=== PATIENT | female | born 1995 | race Two or more races ===

== ENCOUNTER 2020-10-27 23:47 | Emergency (ER) | payer BC ==
[~2020-10-27] VITALS: Ht 154.9 cm; Wt 54.5 kg
--- NOTE | 2020-10-28 00:08 | PHYS DOC ---
Past History Past Medical History: No Pertinent History Past Surgical History: No Surgical History Adult General Chief Complaint Chief Complaint: ABDOMINAL PAIN HPI HPI Patient is a 25-year-old female presenting for abdominal pain. Reports onset w as 8 PM yesterday evening without any known inciting event or ingestion. States she has been fairly nauseous throughout the day and had a glass of orange juice and a muffin for dinner. Reports that nausea worsened throughout the evening prompting her to have several episodes of nonbloody nonbilious emesis. She then began to experience epigastric burning with mild radiation to pe riumbilical/right flank areas. Leaning forward alleviates the pain, p.o. intake exacerbates nausea and subsequent pain. Timing of symptoms has been constant and worsening since onset. She has not taken anything for the pain. Denies any prior abdominal surgeries, denies any medical issues, takes no medications on a daily basis. Review of Systems Review of Systems Fourteen body systems of review of systems have been reviewed. See HPI for pertinent positives and negative responses, other bay all other systems are negative, non-pertinent or non-contributory Allergies Allergies Allergies Coded Allergies Type Severity Reaction Last Updated Verified No Known Drug Allergies 10/28/20 No Physical Exam Physical Exam Constitutional: Well developed, well nourished, no acute distress, non-toxic appearance. HENT: Normocephalic, atraumatic, bilateral external ears normal, oropharynx moist, no oral exudates, nose normal. Eyes: PERRLA, EOMI, conjunctiva normal, no discharge. Neck: Normal range of motion, no tenderness, supple, no stridor. Cardiovascular: Heart rate regular, sinus rhythm, no murmurs rubs or gallops Lungs & Thorax: Bilateral breath sounds clear to auscultation Abdomen: Bowel sounds normal, soft, periumbilical and epigastric tenderness with guarding present, no rebound, negative Christian and Rovsing signs, negative heel strike, no masses, no pulsatile masses. Nonsurgical abdomen, no peritoneal signs Skin: Warm, dry, no erythema, no rash. Back: No tenderness, no CVA tenderness. Extremities: No tenderness, no cyanosis, no clubbing, ROM intact, no edema. Neurologic: Alert and oriented X 3, grossly normal motor & sensory function, no focal deficits noted. Psychologic: Affect normal, judgement normal, mood normal. Current Patient Data Vital Signs Vital Signs Date Time Temp Pulse Resp B/P (MAP) Pulse Ox O2 Delivery O2 Flow Rate FiO2 10/27/20 23:58 98.7 93 16 111/65 (80) 99 Room Air Lab Results Laboratory Tests Test 10/27/20 23:59 10/28/20 00:00 10/28/20 00:27 Urine Collection Type Unknown Urine Color Yellow Urine Clarity Clear Urine pH 5.0 Urine Specific [place]ward[place] 1.025 Urine Protein Neg Urine Glucose (UA) Neg mg/dL Urine Ketones (Stick) Neg mg/dL Urine Blood Neg Urine Nitrite Neg Urine Bilirubin Neg Urine Urobilinogen Dipstick 0.2 mg/dL Urine Leukocyte Esterase Neg Urine RBC 0 /HPF Urine WBC Occ /HPF Urine Squamous Epithelial Cells Mod /LPF Urine Bacteria Few /HPF Bedside Urine HCG, Qualitative hcg negative White Blood Count 10.4 x10^3/uL Red Blood Count 4.85 x10^6/uL Hemoglobin 13.4 g/dL Hematocrit 39.4 % Mean Corpuscular Volume 81 fL Mean Corpuscular Hemoglobin 28 pg Mean Corpuscular Hemoglobin Concent 34 g/dL Red Cell Distribution Width 13.9 % Platelet Count 212 x10^3/uL Neutrophils (%) (Auto) 81 % Lymphocytes (%) (Auto) 14 % Monocytes (%) (Auto) 5 % Eosinophils (%) (Auto) 1 % Basophils (%) (Auto) 0 % Neutrophils # (Auto) 8.4 x10^3uL Lymphocytes # (Auto) 1.4 x10^3/uL Monocytes # (Auto) 0.5 x10^3/uL Eosinophils # (Auto) 0.1 x10^3/uL Basophils # (Auto) 0.0 x10^3/uL Sodium Level 142 mmol/L Potassium Level 3.4 mmol/L Chloride Level 106 mmol/L Carbon Dioxide Level 28 mmol/L Anion Gap 8 Blood Urea Nitrogen 13 mg/dL Creatinine 0.7 mg/dL Estimated GFR (Cockcroft-Gault) 103.7 BUN/Creatinine Ratio 19 Glucose Level 104 mg/dL Calcium Level 8.7 mg/dL Total Bilirubin 0.8 mg/dL Aspartate Amino Transf (AST/SGOT) 26 U/L Alanine Aminotransferase (ALT/SGPT) 59 U/L Alkaline Phosphatase 76 U/L Total Protein 7.8 g/dL Albumin 3.7 g/dL Albumin/Globulin Ratio 0.9 Lipase 98 U/L Current Medications Medications (Trade) Dose Ordered Sig/Jodie Route PRN Reason Start Time Stop Time Status Last Admin Dose Admin Multi-Ingredient Mouthwash/Gargle (Gi Cocktail) 20 ml STK-MED ONCE .ROUTE 10/28/20 00:19 10/28/20 00:19 DC Sodium Chloride 1,000 ml @ 1,000 mls/hr 1X ONCE IV 10/28/20 00:30 10/28/20 01:29 DC 10/28/20 00:36 Ondansetron HCl (Zofran) 4 mg 1X ONCE IVP 10/28/20 00:30 10/28/20 00:39 DC 10/28/20 00:36 Multi-Ingredient Mouthwash/Gargle (Gi Cocktail) 20 ml 1X ONCE PO 10/28/20 00:30 10/28/20 00:39 DC 10/28/20 00:37 Iohexol (Omnipaque 300 Mg/ml) 75 ml 1X ONCE IV 10/28/20 01:00 10/28/20 01:01 DC 10/28/20 01:13 Info (Do NOT chart on this entry -- for MONITORING) 1 each PRN DAILY PRN MC SEE COMMENTS 10/28/20 01:00 10/30/20 00:59 EKG EKG [] Radiology/Procedures Radiology/Procedures PROCEDURE: CT ABD PELV W/ IV CONTRST ONLY CT abdomen and pelvis with contrast PQRS statement: CT scans at this facility use dose reduction including either automated exposure control, iterative reconstructions, and /or weight based radiation dosing via mA and kV modification when appropriate to reduce radiation dose to as low as reasonably achievable. Contrast: 75 mL Omnipaque 300 intravenous contrast. HISTORY: Epigastric abdominal pain, right upper quadrant abdominal pain. Abdomen findings: Lung bases unremarkable. Shallow disc bulge L5-S1. Liver, gallbladder, pancreas, spleen, kidneys and adrenal glands are unremarkable. Acute appendicitis the appendix is abnormally fluid distended and thick-walled with a diameter of 10 mm and mild surrounding edema. No abdominal fluid or adenopathy. Nonspecific subcentimeter nodules the right lower quadrant abdominal wall. 1 cm fatty umbilical abdominal wall hernia. There is a groundglass densi ty of the fat of the posterior lower thorax and upper flank which is indeterminate no well-defined mass lesion is evident. Pelvis findings: Several nodular densities measuring 1 cm or smaller in size within the fat of the buttocks. Ovarian follicles. Retroverted uterus. Small volume of fluid within the cul-de-sac. Bladder, rectum and bones are unremarkable. IMPRESSION: 1. Acute appendicitis as described above. 2. Indeterminate small nodular densities within the fat of the right abdominal wall and of the buttocks. 3. Groundglass density, perhaps edema, of the fat of the posterior thorax and upper flank of uncertain significance. Electronically signed by: Rehan Ortiz MD (10/28/2020 1:53 AM) [facility] [place] C/O Chest Pain: No Risk Factors: Risk Factors: DM, Current or recent (<one month) smoker, HTN, HLP, family hi story of CAD, obesity. Risk Scores: Risk Factors: DM, Current or recent (<one month) smoker, HTN, HLP, family history of CAD, obesity. Course & Med Decision Making Course & Med Decision Making Hemodynamically stable patient with history concerning for abdominal pain, nausea and vomit with anorexic symptoms. Physical exam did not show an acute abdomen. GI cocktail initially administered at 0000hrs without significant relief in symptoms Further diagnostic work-up revealed findings concerning for acute appendicitis. I discussed case with hospitalist at [facility] who ultimately agreed need for transfer and admission for surgical consultation. I discussed urgent but nonemergent need for surgical consultation. Surgery service not consulted at 2 AM and will defer for hospitalist to consult later in the morning. In the interim, patient will be started on IV cefoxitin. Patient will have Covid testing performed on arrival to [facility] I updated patient and significant other present about findings and proposed plan of care that included EMS transfer for admission to [facility]. They were amenable. All questions and concerns addressed prior to ER transfer to [facility] Donato Disclaimer Dragon Disclaimer This electronic medical record was generated, in whole or in part, using a voice recognition dictation system. Departure Departure: Impression: Primary Impression: Acute appendicitis Disposition: 02 DC/TRF OTHER SHORT TERM HOS ([facility]) Admitting Physician: Other (dr [email or web address]) Condition: STABLE Referrals: PCP,NO (PCP) ALEAH DUPONT DO Oct 28, 2020 00:08
[2020-10-28] MEDS ORDERED: LIDO:MAALOX 1:1 20 ML SINGLE DOSE. ONE (00:19)
[2020-10-28 00:29] LABS: BACTERIA,URINE FEW /HPF (0-FEW); BILIRUBIN,URINE NEG (NEG); CLARITY,URINE CLEAR; COLOR,URINE YELLOW; GLUCOSE,URINE NEG (NEG); NITRITE,URINE NEG (NEG); RBC,URINE 0 /HPF (0-2); SQUAMOUS EPITHELIAL CELL,UR MOD /LPF; UROBILINOGEN,URINE 0.2 mg/dL (0.2 mg/dL); WBC,URINE OCC /HPF (0-4)
[2020-10-28] MEDS ORDERED: LIDO:MAALOX 1:1 20 ML SINGLE DOSE. PO ONE (00:30)
[2020-10-28] MEDS ORDERED: IV NORMAL SALINE 1,000ML 1,000 ML IV ONE (00:30)
[2020-10-28] MEDS ORDERED: ONDANSETRON PF 4 MG/2 ML VIAL. IVP ONE (00:30)
[2020-10-28 00:49] LABS: BASO % 0 % (0-3); EOS # 0.1 x10^3/uL (0.0-0.7); EOS % 1 % (0-3); HEMATOCRIT 39.4 % (36.0-47.0); HEMOGLOBIN 13.4 g/dL (12.0-15.5); LYMPH # 1.4 x10^3/uL (1.0-4.8); LYMPH % 14 % (24-48); MEAN CORPUSCULAR HEMOGLOBIN 28 pg (25-35); MEAN CORPUSCULAR HGB CONC 34 g/dL (31-37); MEAN CORPUSCULAR VOLUME 81 fL (79-100); MONO # 0.5 x10^3/uL (0.0-1.1); MONO % 5 % (0-9); NEUT # 8.4 x10^3uL (1.8-7.7); NEUT % 81 % (31-73); PLATELET COUNT 212 x10^3/uL (140-400); RED BLOOD COUNT 4.85 x10^6/uL (3.50-5.40); RED CELL DISTRIBUTION WIDTH 13.9 % (11.5-14.5); WHITE BLOOD COUNT 10.4 x10^3/uL (4.0-11.0)
[2020-10-28] MEDS ORDERED: CONTRAST GIVEN. MC PRN (01:00)
[2020-10-28] MEDS ORDERED: IOHEXOL 300 MG/ML 75 ML VIAL. IV ONE (01:00)
[2020-10-28 01:04] LABS: CALCIUM 8.7 mg/dL (8.5-10.1); CREATININE 0.7 mg/dL (0.6-1.0); GFR 103.7; POTASSIUM 3.4 mmol/L (3.5-5.1)
[2020-10-28 01:10] LABS: ALBUMIN 3.7 g/dL (3.4-5.0); ALBUMIN/GLOBULIN RATIO 0.9 (1.0-1.7); TOTAL BILIRUBIN 0.8 mg/dL (0.2-1.0); TOTAL PROTEIN 7.8 g/dL (6.4-8.2)
--- NOTE | 2020-10-28 01:56 | RAD ---
CT abdomen and pelvis with contrast PQRS statement: CT scans at this facility use dose reduction including either automated exposure cont rol, iterative reconstructions, and /or weight based radiation dosing via mA and kV modification when appropriate to reduce radiation dose to as low as reasonably achievable. Contrast: 75 mL Omnipaque 300 intravenous contrast. HISTORY: Epigastric abdominal pain, right upper quadrant abdominal pain. Abdomen findings: Lung bases unremarkable. Shallow disc bulge L5-S1. Liver, gallbladder, pancreas, sp ruby, kidneys and adrenal glands are unremarkable. Acute appendicitis the appendix is abnormally flui d distended and thick-walled with a diameter of 10 mm and mild surrounding edema. No abdominal fluid or adenopathy. Nonspecific subcentimeter nodules the right lower quadrant abdominal wall. 1 cm fatty umbilical abdominal wall hernia. There is a groundglass density of the fat of the posterior lower tho rax and upper flank which is indeterminate no well-defined mass lesion is evident. Pelvis findings: Several nodular densities measuring 1 cm or smaller in size within the fat of the bu ttocks. Ovarian follicles. Retroverted uterus. Small volume of fluid within the cul-de-sac. Bladder, rectum and bones are unremarkable. IMPRESSION: 1. Acute appendicitis as described above. 2. Indeterminate small nodular densities within the fat of the right abdominal wall and of the buttoc ks. 3. Groundglass density, perhaps edema, of the fat of the posterior thorax and upper flank of uncertai n significance. Electronically signed by: Rehan Ortiz MD (10/28/2020 1:53 AM) [facility]
[2020-10-28 02:23] VITALS: BP 126/74
[2020-10-28] MEDS ORDERED: NORMAL SALINE ONE (02:56)
== END 2020-10-28 03:21 | disposition short-term general hospital (02) ==
LOC: ER 23:47
DX: K35.80 Unspecified acute appendicitis (principal)
CPT/HCPCS: 36415; 74177; 80053; 81001; 81025; 83690; 85025; 96361; 96374; 96375; 99285; J0694; J2405; J7030; Q9967

== ENCOUNTER → 2021-09-14 | Outpatient (CLI) | payer OTHER ==
[2021-09-14 12:22] LABS: BASO % 0 % (0-3); EOS % 1 % (0-3); HEMATOCRIT 38.5 % (36.0-47.0); HEMOGLOBIN 12.8 g/dL (12.0-15.5); LYMPH # 1.4 x10^3/uL (1.0-4.8); LYMPH % 34 % (24-48); MEAN CORPUSCULAR HEMOGLOBIN 28 pg (25-35); MEAN CORPUSCULAR HGB CONC 33 g/dL (31-37); MEAN CORPUSCULAR VOLUME 84 fL (79-100); MONO # 0.4 x10^3/uL (0.0-1.1); MONO % 9 % (0-9); NEUT # 2.3 x10^3uL (1.8-7.7); NEUT % 55 % (31-73); PLATELET COUNT 262 x10^3/uL (140-400); RED CELL DISTRIBUTION WIDTH 13.5 % (11.5-14.5); WHITE BLOOD COUNT 4.1 x10^3/uL (4.0-11.0)
[2021-09-14 12:27] LABS: ALBUMIN 3.1 g/dL (3.4-5.0); ALBUMIN/GLOBULIN RATIO 0.7 (1.0-1.7); CALCIUM 8.4 mg/dL (8.5-10.1); CREATININE 0.5 mg/dL (0.6-1.0); GFR 151.6; POTASSIUM 3.8 mmol/L (3.5-5.1); TOTAL BILIRUBIN 0.9 mg/dL (0.2-1.0); TOTAL PROTEIN 7.6 g/dL (6.4-8.2)
== END ==
LOC: LAB 10:56
PROVIDERS: ATTEND Physician Assistant Medical
DX: R10.9 Unspecified abdominal pain (principal)
CPT/HCPCS: 36415; 80053; 85025